=== PATIENT | male | born 1950 | race Caucasian/White ===

== ENCOUNTER 2019-01-16 06:47 | Observation (INO) ==
--- NOTE | 2019-01-09 17:49 | EKG Report ---
Test Performed on : 01/09/2019 5:43:19 PM Test Reason : PAT Blood Pressure : / mmHG Vent. Rate : 089 BPM Atrial Rate : 089 BPM P-R Int : 146 ms QRS Dur : 104 ms QT Int : 360 ms P-R-T Axes : 027 -82 028 degrees QTc Int : 438 ms Normal sinus rhythm. Pulmonary disease pattern Left anterior fascicular block Abnormal ECG No previous ECGs available Unconfirmed Result
[2019-01-09 17:56] LABS: URINE SOURCE CLEAN CATCH
[2019-01-09 18:04] LABS: BILIRUBIN URINE NEGATIVE (NEGATIVE); BLOOD URINE NEGATIVE (NEGATIVE); COLOR YELLOW; GLUCOSE URINE NEGATIVE (NEGATIVE); KETONE URINE NEGATIVE (NEGATIVE); LEUKOCYTES URINE NEGATIVE (NEGATIVE); NITRITE URINE NEGATIVE (NEGATIVE); PH URINE 6.5; PROTEIN URINE NEGATIVE (NEGATIVE); SP GRAVITY URINE 1.013; TURBIDITY URINE CLEAR (CLEAR); UROBILINOGEN URINE NORMAL (NORMAL)
[2019-01-09 18:04] LABS: BASO# 0.04 X1000 (0.0-0.2); BASO% 0.6 % (0.0-0.8); EOS# 0.17 X1000 (0.0-0.7); EOS% 2.6 % (0.0-10.0); HEMATOCRIT 44.3 % (42.0-52.0); HEMOGLOBIN 14.2 g/dL (14.0-18.0); IMM GRAN# 0.07 X1000 (0.0-0.04); IMM GRAN% 1.1 % (0.0-0.5); LYMPH# 2.37 X1000 (1.2-3.4); LYMPH% 36.8 % (20.5-51.1); MCH 29.3 PG (27-31); MCHC 32.1 g/dL (33-37); MCV 91.5 FL (81-99); MONO# 0.62 X1000 (0.11-0.59); MONO% 9.6 % (1.7-9.3); MPV 9.2 FL (7.4-10.4); NEUT# 3.17 X1000 (1.4-6.5); NEUT% 49.3 % (42.2-75.2); PLT 156 X1000 (130-400); RBC 4.84 XMIL (4.7-6.1); RDW 14.8 % (11.5-14.5); WBC 6.44 X1000 (4.8-10.8)
[2019-01-09 18:06] LABS: UR EPITHELIAL CELLS <10 /HPF (<10); URINE BACTERIA NEGATIVE /HPF; URINE RBC <10 /HPF (<10); URINE WBC <10 /HPF (<10)
[2019-01-09 18:07] LABS: INR 0.84; PROTIME 12.2 Seconds (11.0-16.0)
[2019-01-09 18:08] LABS: PTT 28.3 Seconds (22.3-41.8)
[2019-01-09 18:14] LABS: AGAP 12; BUN 8 mg/dL (8-22); CALCIUM 9.6 mg/dL (8.8-10.2); CHLORIDE 105 mmol/L (98-107); COSMO 287; ESTIMATED GFR > 60; GLUCOSE 131 mg/dL (70-104); POTASSIUM 4.2 mmol/L (3.5-5.1); SODIUM 144 mmol/L (136-145); TCO2 27 mmol/L (25-35)
[2019-01-16] MEDS ORDERED: TORADOL ONE (06:53)
[2019-01-16] MEDS ORDERED: DURAMORPH ONE (06:53)
[2019-01-16] MEDS ORDERED: SODIUM CHLORIDE 0.9% ONE (06:54)
[2019-01-16] MEDS ORDERED: EXPAREL 1.3% ONE (06:54)
[2019-01-16] MEDS ORDERED: NEOSPORIN G.U. IRRIGANT ONE (06:54)
[2019-01-16] MEDS ORDERED: SENSORCAINE-MPF 0.5%/EPI 1:200,000 ONE (06:54)
[2019-01-16] MEDS ORDERED: VANCOMYCIN ONE (06:54)
[2019-01-16] MEDS ORDERED: REGLAN ONE (07:17)
[2019-01-16] MEDS ORDERED: COLACE ONE (07:17)
[2019-01-16] MEDS ORDERED: PEPCID ONE (07:17)
[2019-01-16] MEDS ORDERED: LYRICA ONE (07:18)
[2019-01-16] MEDS ORDERED: VANCOMYCIN 1 GM/NS 1 GM/250 ML IVPB ONE (07:18)
[2019-01-16] MEDS ORDERED: CELEBREX ONE (07:18)
[2019-01-16] MEDS ORDERED: LR 1,000 ML ONE (07:18)
[2019-01-16] MEDS ORDERED: DIPRIVAN 1% ONE (07:51)
[2019-01-16] MEDS ORDERED: XYLOCAINE-MPF 2% ONE (07:52)
[2019-01-16] MEDS ORDERED: QUELICIN (DOSE) ONE (07:52)
[2019-01-16] MEDS ORDERED: NORCURON ONE (07:52)
[2019-01-16] MEDS ORDERED: SODIUM CHLORIDE 0.9% 10 ML ONE (07:52)
[2019-01-16] MEDS: CYKLOKAPRON 1,000 MG/NS 2,000 MG/200 ML IVPB ONE ×2 (08:37→10:31)
[2019-01-16] MEDS ORDERED: DILAUDID ONE (08:59)
[2019-01-16] MEDS ORDERED: DECADRON ONE (09:01)
[2019-01-16] MEDS ORDERED: ZOFRAN ONE (09:01)
[2019-01-16] MEDS ORDERED: OFIRMEV 1000 MG/ISOTONIC SOLN 1,000 MG/100 ML BOTTLE ONE (09:01)
[2019-01-16] MEDS ORDERED: ROBINUL ONE ×2 (09:21→10:33)
[2019-01-16 09:26] LABS: URINE SOURCE CATH
[2019-01-16] MEDS ORDERED: EPHEDRINE ONE (09:30)
[2019-01-16 09:34] LABS: BILIRUBIN URINE NEGATIVE (NEGATIVE); BLOOD URINE NEGATIVE (NEGATIVE); COLOR YELLOW; GLUCOSE URINE NEGATIVE (NEGATIVE); KETONE URINE NEGATIVE (NEGATIVE); LEUKOCYTES URINE NEGATIVE (NEGATIVE); NITRITE URINE NEGATIVE (NEGATIVE); PROTEIN URINE NEGATIVE (NEGATIVE); SP GRAVITY URINE 1.012; TURBIDITY URINE CLEAR (CLEAR); UROBILINOGEN URINE NORMAL (NORMAL)
[2019-01-16 09:35] LABS: UR EPITHELIAL CELLS <10 /HPF (<10); URINE BACTERIA NEGATIVE /HPF; URINE RBC <10 /HPF (<10); URINE WBC <10 /HPF (<10)
[2019-01-16] MEDS ORDERED: NEOSTIGMINE ONE (10:35)
[2019-01-16] MEDS ORDERED: NS 1,000 ML ONE (11:24)
--- NOTE | 2019-01-16 12:04 | Diag Imaging Result Doc PS360 ---
KNEE 1-2 VIEWS-LEFT - 01/16/2019 INDICATION: Left total knee TECHNIQUE: Two views COMPARISON: None FINDINGS: There has been left total knee arthroplasty. Alignment is anatomic. No hardware fracture or loosening. There is been patellar resurfacing. IMPRESSION: No complication. Electronically signed by Kevon Maldonado 01/16/2019 12:02 PM
[2019-01-16] MEDS ORDERED: MILK OF MAGNESIA PO PRN (12:30)
[2019-01-16] MEDS ORDERED: ZOFRAN PO PRN (12:30)
[2019-01-16] MEDS ORDERED: DILAUDID IV PRN ×2 (12:30)
[2019-01-16] MEDS: OXY IR PO PRN ×2 (16:52→20:52)
--- NOTE | 2019-01-16 19:20 | OPERATIVE NOTE ---
PROCEDURE DATE: 01/16/2019 PREOPERATIVE DIAGNOSIS: Degenerative osteoarthritis of the left knee. POSTOPERATIVE DIAGNOSIS: Degenerative osteoarthritis of the left knee. PROCEDURE: Left total knee arthroplasty, with DePuy Attune size 7 posterior stabilized femur, a size 8 tibial tray, 6 mm rotating platform tibial insert, and a 38 mm medialized anatomic patella. SURGEON: Amrik Peñaloza MD. EXPORT AGENT: LAUREANO Warner. SECOND TEST ANALYST: Constantino Knutson RN. ANESTHESIA: General. IV FLUIDS: 1800 mL lactated Ringer. ESTIMATED BLOOD LOSS: 20 mL. TOURNIQUET TIME: 110 minutes at 300 mmHg. COMPLICATIONS: None. INDICATION: The patient is a pleasant 68-year-old male with chronic history of pain and discomfort of his left knee. Continued pain and discomfort despite appropriate nonoperative treatment. X-rays revealed degenerative osteoarthritis. Pain has progressed to affect his activities of daily living, and a recommendation to proceed with left total knee arthroplasty was offered. Risks and benefits of surgery were explained, including risks of anesthesia, , bleeding, infection, failure to relieve pain, postoperative stiffness, nerve injury, blood clots, and other imponderables. All questions were answered. The patient and family wished to proceed with surgery. DETAILS OF OPERATION: The patient was taken to the operating room and placed supine on the operating table. Once adequate anesthesia was obtained, patient's left lower extremity was subsequently prepped and draped in the usual sterile fashion. Esmarch was used to exsanguinate the left lower extremity, and the tourniquet was inflated to 300 mmHg. A standard anterior incision was made with a skin knife. Medial and lateral skin envelopes were developed. A standard medial parapatellar arthrotomy was then performed. Patella fat pad was excised. Retractors were then placed. Approximately 1 cm anterior to the PCL insertion, a starting reamer was passed. Intramedullary guide with a distal cutting block was pinned in position. The distal femoral cut was performed in standard fashion. A sizing block was placed and measured size 7. Corresponding pins were placed. Anterior, posterior, and chamfer cuts were then made. Attention was then turned to the proximal tibia where further resection of the ACL and PCL was performed. Using the extramedullary guide, the proximal tibia cutting block was pinned in position. It had good alignment, confirmed with the alignment dominique. The proximal tibia was then resected. Medial and lateral menisci were excised. A curved osteotome was used to remove the posterior osteophytes off the distal femur. The spacer block was placed and had good soft tissue balance with flexion and extension. Attention was then turned to the proximal tibia where a size 8 tibial tray appeared to be correct size. It was pinned in position. This was followed by a central reamer and a fin punch. The box cutting guide was pinned on the distal femur. A box cut was performed. A trial femoral component was then placed and 2 lug holes were drilled. Trial tibial insert was then placed and had good soft tissue balancing. Patella was resected earlier and protective disk was placed in order to obtain better visualization and retraction. At this time, attention was turned to the patella. The protective disk was removed. The size 38 appeared to be correct size. This was followed by 3 holes drilled. Trial patella component was placed and had good patellofemoral tracking. The trial components were removed. The wound was copiously irrigated with antibiotic pulsatile lavage while vancomycin was mixed with cement on the back table. Sequential cementing was then performed, first with the tibial tray and excess cement was removed with a [place], followed by the femoral component and excess cement was removed with a [place], followed by a trial tibial insert in full extension, and axial loading was maintained while cement cured. Patella component was cemented in standard fashion. Patellar clamp was placed. While cement was curing, Exparel was placed at the soft tissue as well as the subcutaneous tissue. After cement had cured, peripheral cement was removed with a small osteotome. The 6 mm rotating platform tibial insert appeared to be correct size. The trial component insert was removed. Exparel was placed in the deep posterior capsule. The wound was copiously irrigated with antibiotic pulsatile lavage. The 6 mm rotating platform tibial insert was then placed. The knee was then carried through a range of motion, and had good range of motion and good soft tissue balance and good patellofemoral tracking. A 1/8 Hemovac drain was placed and was not sewn in. Copious irrigation was then performed once again with antibiotic pulsatile lavage. A #1 Vicryl was used to repair the arthrotomy, followed by a 2-0 Vicryl to repair the subcutaneous tissue, and skin with faith. Adaptic, sterile 4x4s, Webril, cryo unit, and Robert wrap were applied to the left lower extremity. The patient tolerated the procedure well and was transferred to the recovery room in stable condition. cc: Amrik Peñaloza MD
[2019-01-16] MEDS ORDERED: VANCOMYCIN 1 GM/NS 1 GM/250 ML IVPB IV ONE (20:15)
[2019-01-16] MEDS: PERIDEX MT SCH (20:53)
[2019-01-16] MEDS ORDERED: SYNTHROID PO SCH (21:00)
[2019-01-17] MEDS ORDERED: NS 1,000 ML ONE (02:07)
[2019-01-17] MEDS ORDERED: XARELTO PO SCH (06:00)
[2019-01-17] MEDS ORDERED: SYNTHROID PO SCH (06:00)
--- NOTE | 2019-01-17 06:32 | PROGRESS NOTE ---
DATE: 01/17/2019 SUBJECTIVE: The patient is a pleasant 68-year-old male who is 1 day status post left total knee arthroplasty. He is currently resting comfortably. Was able to ambulate with physical therapy yesterday. PHYSICAL EXAMINATION: The patient's left lower extremity wound looks good. There are no signs or symptoms of infection. Calf is soft. He is able to perform a straight leg raise. He has active dorsiflexion and plantar flexion. He is neurovascularly intact distally. LABS: Pending. IMPRESSION: Postoperative day #1 status post left total knee arthroplasty. PLAN: At this point, we will plan on discharging home. We will arrange for home physical therapy. Follow up on 01/29/2019. cc: Amrik Peñaloza MD
[2019-01-17 06:40] LABS: HEMATOCRIT 34.8 % (42.0-52.0)
[2019-01-17 06:41] LABS: AGAP 7; BUN 9 mg/dL (8-22); CALCIUM 8.9 mg/dL (8.8-10.2); CHLORIDE 104 mmol/L (98-107); COSMO 279; CREATININE 0.9 mg/dL (0.7-1.2); ESTIMATED GFR > 60; GLUCOSE 153 mg/dL (70-104); POTASSIUM 4.5 mmol/L (3.5-5.1); SODIUM 139 mmol/L (136-145); TCO2 28 mmol/L (25-35)
[2019-01-17] MEDS ORDERED: PRILOSEC PO SCH (07:00)
[2019-01-17] MEDS: OXY IR PO PRN ×2 (07:49→12:08)
[2019-01-17] MEDS ORDERED: PRINIVIL PO SCH (09:00)
[2019-01-17] MEDS: PERIDEX MT SCH (09:38)
[2019-01-17 11:01] VITALS: BP 99/61
[2019-01-17] MEDS ORDERED: FLU VACCINE IM ONE (12:11)
== END 2019-01-17 13:19 | disposition home health service (06) ==
LOC: OR 06:47 → DIRADM 08:52 → INTOOBSV 08:52 → 4N 08:53
PROVIDERS: ADMIT Orthopaedic Surgery Adult Reconstructive Orthopaedic Surgery; ATTEND Orthopaedic Surgery Adult Reconstructive Orthopaedic Surgery
CPT/HCPCS: 73560; 80048; 81001; 85014; 85018; 85025; 85610; 85730; 86850; 86900; 86901; 88305; 88311; 90686; 93005; 93010; 94760; 94799; 97116; 97162; 97530; A9270; C9290; J0131; J0330; J1100; J1170; J1885; J2274; J2275; J2405; J3370; J7030; J7120; Q9974